=== PATIENT | male | born 1990 | race Caucasian/White ===

== ENCOUNTER 2025-04-26 01:15 | Emergency (ER) | payer BC ==
[~2025-04-26] VITALS: Ht 175.3 cm; Wt 80.0 kg
[2025-04-26 01:43] VITALS: O2SAT 99
[2025-04-26] MEDS: ACETAMINOPHEN 500MG TABLET PO ONE (02:09)
[2025-04-26] MEDS ORDERED: BO1 TP (02:21)
[2025-04-26] MEDS: BACITRACIN ZINC OINT UDPKT TOP ONE (02:25)
[2025-04-26 02:43] VITALS: BP 120/74; PULSE 50; RESP 17; TEMP 36.8; O2SAT 100
== END 2025-04-26 02:56 | disposition home or self-care (01) ==
LOC: ER 01:15
DX: S40.819A Abrasion of unspecified upper arm, initial encounter (principal); X58.XXXA Exposure to other specified factors, initial encounter; Y93.89 Activity, other specified; Y92.89 Other specified places as the place of occurrence of the external cause; Y99.8 Other external cause status
CPT/HCPCS: 99282